=== PATIENT | male | born 1945 | race Caucasian/White ===

== ENCOUNTER 2023-09-30 12:03 | Outpatient (CLI) | payer MEDICARE ==
[~2023-09-30 12:03] MED LIST: Iopamidol 370 76% 100 ML VIAL ONE
== END 2023-09-30 12:04 | disposition home or self-care (01) ==
LOC: CT 12:03
PROVIDERS: ATTEND Thoracic Surgery (Cardiothoracic Vascular Surgery)
DX: G45.8 Other transient cerebral ischemic attacks and related syndromes (principal); I65.23 Occlusion and stenosis of bilateral carotid arteries
CPT/HCPCS: 70498; 82565